=== PATIENT | male | born 1960 | race African-American/Black ===

== ENCOUNTER → 2018-01-02 | Outpatient (CLI) | payer OTHER ==
[~2018-01-02] MED LIST: ALLE24TA PO; ATEN1TAB73; FLON0.053; LEVA500T33 PO; LISI2.5T3 PO; LOVA1TAB47; VERA40TA PO; VIBR50SY PO
--- NOTE | 2018-01-09 11:14 | RSPPFT ---
DATE OF PROCEDURE: 01/02/18 COMMENTS: Spirometry with normal flow rates and ratios. Slow vital capacity is 67% of predicted. TLC is 65%. Diffusion capacity is 73% and normal when corrected for alveolar volume. IMPRESSION: 1. Mild airways restriction. 2. No evidence of airways obstruction. 3. Non-significant response to acutely inhaled bronchodilator. 5. Mild reduction in diffusion when corrected for alveolar volume.
== END ==
LOC: HRSP 09:24
PROVIDERS: ATTEND Internal Medicine Sleep Medicine
DX: R06.09 Other forms of dyspnea (principal)
CPT/HCPCS: 36415; 84443; 94060; 94726; 94729

== ENCOUNTER → 2018-02-10 | Outpatient (CLI) | payer OTHER ==
[2018-02-10 10:43] LABS: HDL CHOLESTEROL 51.9 MG/DL (40.0-60.0); TOTAL BILIRUBIN ADULT 0.5 MG/DL (0.2-1.0); TOTAL PROTEIN 8.4 GM/DL (6.4-8.2)
[2018-02-10 10:46] LABS: ALBUMIN 4.2 GM/DL (3.4-5.0); CHOLESTEROL/ HDL RATIO 3.14 RATIO; DIRECT BILIRUBIN ADULT 0.1 MG/DL (0.0-0.2); INDIRECT BILIRUBIN 0.4 MG/DL (0.0-0.8)
== END ==
LOC: CLAB 10:03
PROVIDERS: ATTEND Internal Medicine Interventional Cardiology
DX: R07.89 Other chest pain (principal); I10 Essential (primary) hypertension; E78.2 Mixed hyperlipidemia; G47.30 Sleep apnea, unspecified; I49.5 Sick sinus syndrome; E66.9 Obesity, unspecified; Z79.899 Other long term (current) drug therapy; Z68.35 Body mass index [BMI] 35.0-35.9, adult
CPT/HCPCS: 36415; 80061; 80076; 82550

== ENCOUNTER → 2018-03-10 | Outpatient (CLI) | payer OTHER | LOC: HRSP 12:25 | PROVIDERS: ATTEND Internal Medicine Sleep Medicine | DX: R06.89 Other abnormalities of breathing (principal) | CPT/HCPCS: 94060; 94726; 94729 ==